=== PATIENT | female | born 1985 | race Caucasian/White ===

== ENCOUNTER → 2018-10-14 | Outpatient (CLI) | payer OTHER ==
--- NOTE | 2018-10-14 11:53 | RAD ---
Scoliosis series, 10/14/2018: HISTORY: Scoliosis, back pain AP standing views of the thoracic and lumbar spine were obtained as requested. There are bilateral Forte rods extending from approximately T2-T12 with associated hooks and wires. There is a mild right convexity lower thoracic scoliosis measured at 17 degrees. There is a mild left convexity lumbar scoliosis measured at 7 degrees. These limited views are otherwise unremarkable. Electronically signed by: Cedric Hager MD (10/14/2018 11:50 AM) [facility]
== END | disposition home or self-care (01) ==
LOC: RAD 09:49
PROVIDERS: ATTEND Surgery
DX: M41.85 Other forms of scoliosis, thoracolumbar region (principal)
CPT/HCPCS: 72081